=== PATIENT | female | born 1975 | race Caucasian/White ===

== ENCOUNTER 2024-10-22 21:15 | Emergency (ER) | payer OTHER ==
--- NOTE | 2024-10-22 21:19 | ERPHSYRPT ---
- History of Present Illness Time Seen by Provider: 10/22/24 21:18 Source: patient Exam Limitations: no limitations Physician History: The patient, with atrial fibrillation, presents with increased heart rate and erratic heart rhythm. Since about 5 PM today, they have experienced a significantly increased heart rate that has been erratic and persistent. Similar episodes have occurred in the past, with the last extended episode approximately five years ago. Brief epi sodes have occurred since then, but none of this duration. No chest pain, swelling, nausea, or vomiting is present. They have a history of atrial fibrillation, for which they sought emergency care about five years ago. At that time, they were treated with metoprolol but discontinued it due to fatigue and have not had significant issues for a long time. They attempted to manage the current episode with Toprol XL, 25 mg extended release, taken around 7 PM today, along with half an aspirin. They recently had 'walking pneumonia' with a cough persisting for about two weeks. They completed a course of antibiotics today and have taken Tessalon Perles, 200 mg today, but have not used any inhalers or steroids. Timing/Duration: hour(s) (4) Activities at Onset: rest Quality: other (NA) Chest Pain Radiation: no radiation Severity of Pain-Max: none Severity of Pain-Current: none Modifying Factors: Improves With: nothing Nitro Today/Relief: no nitro taken today Aspirin Treatment Today: no aspirin today Associated Symptoms: No nausea, No vomiting, No abdominal pain, No diaphoresis, No chest pain, No fever Prior Chest Pain/Cardiac Workup: no prior chest pain Allergies/Adverse Reactions: No Known Drug Allergies Allergy (Verified 10/22/24 21:34) Home Medications: Desvenlafaxine Succinate [Pristiq ER] 100 mg PO DAILY 10/22/24 [History] Dextroamphetamine/Amphetamine [Adderall Xr 20 mg Capsule] 20 mg PO DAILY 10/22/24 [History] - Review of Systems All Other Systems: Reviewed and Negative - Nursing Vital Signs Nursing Vital Signs: Initial Vital Signs Temperature 97.5 F 10/22/24 21:18 Pulse Rate 128 H 10/22/24 21:18 Respiratory Rate 18 10/22/24 21:18 Blood Pressure 125/101 10/22/24 21:18 O2 Sat by Pulse Oximetry 100 10/22/24 21:18 Pain Scale Pain Intensity 0 - Physical Exam General Appearance: no apparent distress Eye Exam: PERRL/EOMI, eyes nml inspection Ears, Nose, Throat Exam: normal ENT inspection Neck Exam: normal inspection, supple, full range of motion Respiratory Exam: normal breath sounds, lungs clear, airway intact, No respir atory distress Cardiovascular Exam: tachycardia, irregular, capillary refill <2 sec, No edema Gastrointestinal/Abdomen Exam: soft, No tenderness, No distention, No mass, No guarding, No rebound Neurologic Exam: alert, oriented x 3, cooperative Skin Exam: normal color, warm, dry, No rash SpO2 Interpretation: normal O2 Delivery: Room Air - Course Nursing assessment & vital signs reviewed: Yes EKG Interpreted by Me: RATE (128), A-fib, NORMAL AXIS, NORMAL INTERVALS, NORMAL QRS, NORMAL ST-T Ordered Tests: Active Orders 24 hr Category Date Time Status Powertrain Calibration Engineer STAT Care 10/22/24 21:25 Active EKG-ER Only STAT Care 10/22/24 21:24 Active IV Insertion STAT Care 10/22/24 21:24 Active CBC W DIFF Stat Lab 10/22/24 21:35 Completed CMP Stat Lab 10/22/24 21:35 Completed D-DIMER QUANTITATIVE Stat Lab 10/22/24 21:35 Completed Lactic Acid Stat Lab 10/22/24 21:35 Completed MAGNESIUM Stat Lab 10/22/24 21:35 Completed NT PRO BNPII Stat Lab 10/22/24 21:35 Completed PHOSPHOROUS Stat Lab 10/22/24 21:38 Completed PROTIME WITH INR Stat Lab 10/22/24 21:35 Completed PTT Stat Lab 10/22/24 21:35 Completed TROPONIN Q4H Lab 10/22/24 21:35 Completed TSH, 3RD Generation Stat Lab 10/22/24 21:35 Completed UA W/RFX UR CULTURE Stat Lab 10/22/24 21:24 Ordered Urine Triage Profile Stat Lab 10/22/24 21:24 Ordered Medication Summary Discontinued Medications Generic Name Dose Route Start Last Admin Trade Name Freq PRN Reason Stop Dose Admin Calcium Gluconate 1,000 mg 10/22/24 21:28 10/22/24 21:46 Calcium Gluconate 1000 Mg/10 Ml Vial IV 10/22/24 21:29 1,000 mg STAT ONE Administration Calcium Gluconate Confirm 10/22/24 21:31 Calcium Gluconate 1000 Mg/10 Ml Vial Administered 10/22/24 21:32 Dose 1,000 mg IV .STK-MED ONE Calcium Gluconate Confirm 10/22/24 21:47 Calcium Gluconate 1000 Mg/10 Ml Vial Administered 10/22/24 21:48 Dose 1,000 mg IV .STK-MED ONE Diltiazem HCl 10 mg 10/22/24 21:24 10/22/24 21:47 Diltiazem Hcl Iv 5 Mg/Ml Vial IV 10/22/24 21:25 10 mg STAT ONE Administration Diltiazem HCl Confirm 10/22/24 21:31 Diltiazem Hcl Iv 5 Mg/Ml Vial Administered 10/22/24 21:32 Dose 50 mg IV .STK-MED ONE Enoxaparin Sodium 80 mg 10/22/24 21:32 10/22/24 21:52 Enoxaparin Sodium 80 Mg/0.8 Ml Syringe SQ 10/22/24 21:33 80 mg STAT ONE Administration Enoxaparin Sodium Confirm 10/22/24 21:50 Enoxaparin Sodium 80 Mg/0.8 Ml Syringe Administered 10/22/24 21:51 Dose 80 mg SQ .STK-MED ONE Sodium Chloride 1,000 mls @ 999 mls/hr 10/22/24 21:24 10/22/24 21:55 Sodium Chloride 0.9% 1000 Ml IV 10/22/24 22:24 999 mls/hr .Q1H1M STA Administration Sodium Chloride Confirm 10/22/24 21:31 Sodium Chloride 0.9% 1000 Ml Administered 10/22/24 21:32 Dose 1,000 mls @ ud .ROUTE .STK-MED ONE Sodium Chloride Confirm 10/22/24 21:51 Sodium Chloride 0.9% 1000 Ml Administered 10/22/24 21:52 Dose 1,000 mls @ ud .ROUTE .STK-MED ONE Metoprolol Tartrate 5 mg 10/22/24 21:30 10/22/24 22:17 Metoprolol Tartrate 5 Mg/5 Ml Vial IV 10/22/24 21:31 Not Given STAT ONE Lab/Rad Data: Laboratory Result Diagrams 10/22/24 21:35 10/22/24 21:35 Laboratory Results 10/22/24 10/22/24 10/22/24 Range/Units 21:38 21:35 21:35 WBC (3.98-10.04) x10^3/uL RBC (3.93-5.22) x10^6/uL Hgb (11.2-15.7) g/dL Hct (34.1-44.9) % MCV (79.4-94.8) fL MCH (25.6-32.2) pg MCHC (32.2-35.5) g/dL RDW (11.7-14.4) % Plt Count (182-369) x10^3/uL MPV (9.4-12.3) fL Gran % (34.0-71.1) % Immature Gran % (Auto) (0.001-0.429) % Nucleat RBC Rel Count (0.00-0.2) % Eos # (Auto) (0.04-0.36) x10^3/uL Immature Gran # (Auto) (0.001-0.031) x10^3u/L Absolute Lymphs (auto) (1.18-3.74) x10^3/uL Absolute Monos (auto) (0.24-0.86) x10^3/uL Absolute Nucleated RBC (0.00-0.012) x10^3u/L Lymphocytes % (19.3-51.7) % Monocytes % (4.7-12.5) % Eosinophils % (0.7-5.8) % Basophils % (0.1-1.2) % Absolute Granulocytes (1.56-6.13) x10^3/uL Basophils # (0.01-0.08) x10^3/uL PT (9.4-12.5) SECONDS INR (0.8-3.0) APTT (25.1-36.5) SECONDS D-Dimer (0.0-0.50) mg/L Sodium (135-145) mmol/L Potassium (3.5-5.1) mmol/L Chloride (98-107) mmol/L Carbon Dioxide (22-30) mmol/L Anion Gap (5-15) MEQ/L BUN (7-17) mg/dL Creatinine (0.52-1.04) mg/dL Estimated GFR ML/MIN Glucose (74-106) mg/dL Lactic Acid (0.4-2.0) Calcium (8.4-10.2) mg/dL Phosphorus 4.4 (2.5-4.5) mg/dL Magnesium (1.6-2.3) mg/dL Total Bilirubin (0.2-1.3) mg/dL AST (14-36) U/L ALT (0-35) U/L Alkaline Phosphatase (38-126) U/L Troponin I (0.000-0.033) ng/mL NT-Pro-B Natriuret Pep (<300) pg/mL Serum Total Protein (6.3-8.2) g/dL Albumin (3.5-5.0) g/dL Free T4 0.87 (0.78-2.19) ng/dL TSH 3rd Generation 4.782 H (0.470-4.680) mIU/L 10/22/24 10/22/24 10/22/24 Range/Units 21:35 21:35 21:35 WBC (3.98-10.04) x10^3/uL RBC (3.93-5.22) x10^6/uL Hgb (11.2-15.7) g/dL Hct (34.1-44.9) % MCV (79.4-94.8) fL MCH (25.6-32.2) pg MCHC (32.2-35.5) g/dL RDW (11.7-14.4) % Plt Count (182-369) x10^3/uL MPV (9.4-12.3) fL Gran % (34.0-71.1) % Immature Gran % (Auto) (0.001-0.429) % Nucleat RBC Rel Count (0.00-0.2) % Eos # (Auto) (0.04-0.36) x10^3/uL Immature Gran # (Auto) (0.001-0.031) x10^3u/L Absolute Lymphs (auto) (1.18-3.74) x10^3/uL Absolute Monos (auto) (0.24-0.86) x10^3/uL Absolute Nucleated RBC (0.00-0.012) x10^3u/L Lymphocytes % (19.3-51.7) % Monocytes % (4.7-12.5) % Eosinophils % (0.7-5.8) % Basophils % (0.1-1.2) % Absolute Granulocytes (1.56-6.13) x10^3/uL Basophils # (0.01-0.08) x10^3/uL PT 10.1 (9.4-12.5) SECONDS INR 0.92 (0.8-3.0) APTT 24.2 L (25.1-36.5) SECONDS D-Dimer 0.48 (0.0-0.50) mg/L Sodium 141 (135-145) mmol/L Potassium 3.7 (3.5-5.1) mmol/L Chloride 107 (98-107) mmol/L Carbon Dioxide 25 (22-30) mmol/L Anion Gap 11.6 (5-15) MEQ/L BUN 15 (7-17) mg/dL Creatinine 0.93 (0.52-1.04) mg/dL Estimated GFR 75.4 ML/MIN Glucose 99 (74-106) mg/dL Lactic Acid (0.4-2.0) Calcium 10.0 (8.4-10.2) mg/dL Phosphorus (2.5-4.5) mg/dL Magnesium 2.1 (1.6-2.3) mg/dL Total Bilirubin 0.30 (0.2-1.3) mg/dL AST 28 (14-36) U/L ALT 19 (0-35) U/L Alkaline Phosphatase 69 (38-126) U/L Troponin I < 0.012 (0.000-0.033) ng/mL NT-Pro-B Natriuret Pep 129 (<300) pg/mL Serum Total Protein 7.9 (6.3-8.2) g/dL Albumin 4.8 (3.5-5.0) g/dL Free T4 (0.78-2.19) ng/dL TSH 3rd Generation (0.470-4.680) mIU/L 10/22/24 10/22/24 Range/Units 21:35 21:35 WBC 8.2 (3.98-10.04) x10^3/uL RBC 4.24 (3.93-5.22) x10^6/uL Hgb 13.2 (11.2-15.7) g/dL Hct 37.7 (34.1-44.9) % MCV 88.9 (79.4-94.8) fL MCH 31.1 (25.6-32.2) pg MCHC 35.0 (32.2-35.5) g/dL RDW 11.7 (11.7-14.4) % Plt Count 322 (182-369) x10^3/uL MPV 9.1 L (9.4-12.3) fL Gran % 52.8 (34.0-71.1) % Immature Gran % (Auto) 0.4 (0.001-0.429) % Nucleat RBC Rel Count 0.0 (0.00-0.2) % Eos # (Auto) 0.17 (0.04-0.36) x10^3/uL Immature Gran # (Auto) 0.03 (0.001-0.031) x10^3u/L Absolute Lymphs (auto) 2.95 (1.18-3.74) x10^3/uL Absolute Monos (auto) 0.68 (0.24-0.86) x10^3/uL Absolute Nucleated RBC 0.00 (0.00-0.012) x10^3u/L Lymphocytes % 35.8 (19.3-51.7) % Monocytes % 8.3 (4.7-12.5) % Eosinophils % 2.1 (0.7-5.8) % Basophils % 0.6 (0.1-1.2) % Absolute Granulocytes 4.36 (1.56-6.13) x10^3/uL Basophils # 0.05 (0.01-0.08) x10^3/uL PT (9.4-12.5) SECONDS INR (0.8-3.0) APTT (25.1-36.5) SECONDS D-Dimer (0.0-0.50) mg/L Sodium (135-145) mmol/L Potassium (3.5-5.1) mmol/L Chloride (98-107) mmol/L Carbon Dioxide (22-30) mmol/L Anion Gap (5-15) MEQ/L BUN (7-17) mg/dL Creatinine (0.52-1.04) mg/dL Estimated GFR ML/MIN Glucose (74-106) mg/dL Lactic Acid 0.9 (0.4-2.0) Calcium (8.4-10.2) mg/dL Phosphorus (2.5-4.5) mg/dL Magnesium (1.6-2.3) mg/dL Total Bilirubin (0.2-1.3) mg/dL AST (14-36) U/L ALT (0-35) U/L Alkaline Phosphatase (38-126) U/L Troponin I (0.000-0.033) ng/mL NT-Pro-B Natriuret Pep (<300) pg/mL Serum Total Protein (6.3-8.2) g/dL Albumin (3.5-5.0) g/dL Free T4 (0.78-2.19) ng/dL TSH 3rd Generation (0.470-4.680) mIU/L - Progress Progress: improved Air Movement: good Progress Note: 10/22/24 21:36 +/- new onset atrial fibrillation, remote hx of afib in the past, never on anticoagulation, was prescribed BB, but not taking. Given their history and exam it is likely this patient is spontaneously reverting to a rate controlled rhythm but required a thorough workup for their new arrhythmia. Patients presentation not consistent with Pneumothorax, Pneumonia, Pulmonary Embolus, Tamponade, ACS, Thyrotoxicosis. No history or evidence decompensated heart failure. Rx: Xarelto 20mg Daily (Denies hemophilia, recent GI or other ongoing bleeding), Metoprolol 25mg QD Disposition: Discharge home with prompt PCP follow up and cardiology referral given patient maintained NSR during multi-hour observation in ED. Workup: ECG, CBC, CMP, UA, Troponin, BNP, TSH, Ca-Mag-Phos Treatment Defer Cardioversion (uncertain historical reliability with time of onset, increased risk of thromboembolic stroke) 10/22/24 22:34 HR improved to 80s after 10mg Diltiazem bolus. Repeat EKG shows 83bpm, SR. Labs unremarkable, slight elevation of TSH with normal T4. 10/22/24 22:42 Advised patient to stop Adderall. Blood Culture(s) Obtained: No Antibiotics given: No Counseled pt/family regarding: lab results, diagnosis, need for follow-up, rad results Medical Desision Making - Diagnostic Testing Diagnostic test were ordered, analyzed, and reviewed by me: Yes Radiological Interpretation: Interpreted by me - Risk of complications The pt has a mod risk of morbidity or mortality based on: Need for prescription drug management - Departure Departure Disposition: Home Clinical Impression: Atrial fibrillation, Palpitations Condition: Good Critical Care Time: No Instructions: Atrial fibrillation Prescriptions: Metoprolol Succinate 25 mg PO DAILY 30 Days #30 tab Rivaroxaban [Xarelto] 20 mg PO DAILY 30 Days #30 tablet
[2024-10-22] MEDS ORDERED: Cardizem IV 50 MG/10 ML IV ONE (21:31)
[2024-10-22] MEDS ORDERED: Sodium Chloride 0.9% 1000 ML 1,000 ML ONE ×2 (21:31→21:51)
[2024-10-22] MEDS ORDERED: Calcium Gluconate 10% 1000 MG IV ONE ×2 (21:31→21:47)
[2024-10-22 21:35] VITALS: TEMP 97.5
[2024-10-22 21:41] LABS: Absolute Neutrophil Ct (ANC) 4.36 x10^3/uL (1.56-6.13); BASOPHIL % 0.6 % (0.1-1.2); Basophil (Absolute #) 0.05 x10^3/uL (0.01-0.08); Eosinophil % 2.1 % (0.7-5.8); Eosinophil (Absolute #) 0.17 x10^3/uL (0.04-0.36); Hematocrit 37.7 % (34.1-44.9); Hemoglobin 13.2 g/dL (11.2-15.7); IMMATURE GRAN # 0.03 x10^3u/L (0.001-0.031); IMMATURE GRAN % 0.4 % (0.001-0.429); Lymphocyte (Absolute #) 2.95 x10^3/uL (1.18-3.74); Lymphocytes % 35.8 % (19.3-51.7); Mean Cell Volume 88.9 fL (79.4-94.8); Mean Corpuscular Hemoglobin 31.1 pg (25.6-32.2); Mean Platelet Volume 9.1 fL (9.4-12.3); Monocyte (Absolute #) 0.68 x10^3/uL (0.24-0.86); Monocytes % 8.3 % (4.7-12.5); Neutrophil % 52.8 % (34.0-71.1); Platelet Count 322 x10^3/uL (182-369); Red Blood Count 4.24 x10^6/uL (3.93-5.22); Red Cell Distribution Width 11.7 % (11.7-14.4); White Blood Count 8.2 x10^3/uL (3.98-10.04)
[2024-10-22] MEDS: Calcium Gluconate 10% 1000 MG IV ONE (21:46)
[2024-10-22] MEDS: Cardizem IV 50 MG/10 ML IV ONE (21:47)
[2024-10-22] MEDS ORDERED: ENOXAPARIN SODIUM SQ ONE (21:50)
[2024-10-22 21:51] LABS: ALBUMIN 4.8 g/dL (3.5-5.0); ANION GAP 11.6 MEQ/L (5-15); BILIRUBIN,TOTAL 0.3 mg/dL (0.2-1.3); Creatinine 1 0.93 mg/dL (0.52-1.04); EST GLOMERULAR FILTRATION RATE 75.4 ML/MIN; MAGNESIUM 2.1 mg/dL (1.6-2.3); Potassium 3.7 mmol/L (3.5-5.1); Total Protein 7.9 g/dL (6.3-8.2)
[2024-10-22] MEDS: ENOXAPARIN SODIUM SQ ONE (21:52)
[2024-10-22 21:53] LABS: D-DIMER QUANTITATIVE 0.48 mg/L (0.0-0.50); INR 0.92 (0.8-3.0); PROTIME 10.1 SECONDS (9.4-12.5); PTT 24.2 SECONDS (25.1-36.5)
[2024-10-22] MEDS: Sodium Chloride 0.9% 1000 ML 1,000 ML IV STA (21:55)
[2024-10-22 22:03] LABS: NT PRO BNPII 129 pg/mL (<300); TROPONIN < 0.012 ng/mL (0.000-0.033)
[2024-10-22] MEDS: LOPRESSOR INJECTION IV ONE (22:17)
[2024-10-22 22:39] VITALS: BP 117/84; PULSE 81; RESP 14; O2SAT 99
[2024-10-22 22:49] LABS: Appearance Clear (Clear); Bacteria None Seen /HPF (None Seen); Bilirubin Negative (Negative); Blood Negative (Negative); Epithelial Cells None Seen /HPF (None Seen); Glucose, Urine Negative (Negative); Hyaline Casts NONE SEEN /LPF (0-2); Ketones Negative (Negative); Leukocyte Esterase Small (Negative); Nitrite Negative (Negative); Protein,Urine Dip Negative (Negative); RBC 0-2 /HPF (0-5); Specific Gravity <=1.005 (1.005-1.030); Urobilinogen 0.2 mg/dL (0.2)
[2024-10-22 22:56] LABS: Amphetamine,Urine NEGATIVE (NEGATIVE); Barbiturate,Urine NEGATIVE (NEGATIVE); Benzodiazepine,Urine NEGATIVE (NEGATIVE); Cocaine,Urine NEGATIVE (NEGATIVE); Methadone,Urine NEGATIVE (NEGATIVE); Opiate,Urine NEGATIVE (NEGATIVE); PCP,Urine NEGATIVE (NEGATIVE); THC,Urine NEGATIVE (NEGATIVE)
== END 2024-10-22 22:57 | disposition home or self-care (01) ==
LOC: ED 21:15
DX: I48.91 Unspecified atrial fibrillation (principal); R00.2 Palpitations; Z79.01 Long term (current) use of anticoagulants; Z79.899 Other long term (current) drug therapy
CPT/HCPCS: 36415; 80053; 80307; 81001; 83605; 83735; 83880; 84100; 84439; 84443; 84484; 85025; 85379; 85610; 85730; 93005; 93041; 96374; 96375; 99284; J0612; J1650